=== PATIENT | male | born 1995 | race Caucasian/White ===

== ENCOUNTER 2017-03-09 11:28 | Emergency (ER) | payer BC, OTHER ==
--- NOTE | 2017-03-09 11:59 | XRAY Preliminary Report ---
Exam: XR Ankle 3 View RT IMPRESSION: Minimally displaced fracture of the lateral malleolus with a small joint effusion and adj acent soft tissue swelling. [facility] SITE ID: [id number]
--- NOTE | 2017-03-09 12:02 | XRAY Report ---
EXAM: RIGHT ANKLE RADIOGRAPHY EXAM DATE: 03/09/2017 11:51 AM. CLINICAL HISTORY: Hard to ambulate after twisting ankle. . COMPARISON: None. TECHNIQUE: 3 views. FINDINGS: Bones: Minimally displaced fracture of the lateral malleolus. Joints: Small joint effusion at the ankle. Soft Tissues: Soft tissue swelling along lateral aspect of the ankle. IMPRESSION: Minimally displaced fracture of the lateral malleolus with a small joint effusion and adj acent soft tissue swelling. [facility] Referring Provider Line: [phone] SITE ID: [id number]
--- NOTE | 2017-03-09 13:13 | ED Physician Documentation ---
PD HPI LOWER EXT INJURY - Stated complaint Stated Complaint: RT ANKLE INJURY - Chief complaint Chief Complaint: Ext Problem - History obtained from History obtained from: Patient - History of Present Illness PD HPI LOW EXT INJURY LOCATION: Right, Ankle Type of injury: Twist Where injury occurred: Other (hiking around river) Timing - onset: How many days ago (3) Timing - duration: Days (3) Timing - details: Abrupt onset, Still present Worsened by: Moving, Other (walking) Associated symptoms: Swelling. No: Weakness, Numbness Similar symptoms before: Has not had sx before Recently seen: Not recently seen Review of Systems Constitutional: denies: Fever, Chills GI: denies: Nausea, Vomiting Skin: denies: Abrasion (s), Laceration (s) Neurologic: denies: Focal weakness, Numbness PD PAST MEDICAL HISTORY - Past Medical History Past Medical History: No - Past Surgical History Past Surgical History: No - Present Medications Home Medications: Ambulatory Orders Medication Instructions Recorded Confirmed No Known Home Medications [No 03/09/17 03/09/17 Known Home Medications] - Allergies Allergies/Adverse Reactions: Allergies Allergy/AdvReac Type Severity Reaction Status Date / Time No Known Drug Allergies Allergy Verified 03/09/17 11:34 - Social History Does the pt smoke?: No Smoking Status: Never smoker Does the pt drink ETOH?: No Does the pt have substance abuse?: No - Immunizations Immunizations are current?: Yes PD ED PE NORMAL - Vitals Vital signs reviewed: Yes - General General: Alert and oriented X 3, No acute distress, Well developed/nourished - Derm Derm: Normal color, Warm and dry - Extremities Extremities: Other (There is swelling and tenderness along the distal fibula. There is no medial tenderness. The Achilles is firm and nontender. Normal sensation color and capillary refill in the toes. Inversion testing does cause pain. There is no pain medially. X-ray shows a distal fibular fracture below the angle of the mortised.) - Neuro Neuro: No motor deficit, No sensory deficit Results - Vitals Vitals: Oxygen O2 Source Room air - Rads (name of study) right ankle Radiology: Prelim report reviewed, EMP read contemporaneously (Distal fibular fracture below the ankle mortise. It is minimally displaced. The mortise appears normal. Medial aspect is normal.) PD MEDICAL DECISION MAKING - ED course Complexity details: reviewed results, considered differential, d/w patient ( distal fibular fracture, without medial tenderness, and he has been walking on it a few days. Could treat adequately with cast boot. He is between jobs currently, so does not need work limitations. ) Departure - Departure Disposition: 01 Home, Self Care Clinical Impression: Fracture of distal fibula Qualifiers: Encounter type: initial encounter Fracture type: closed Fracture morphology: other fracture Laterality: right Qualified Code(s): S82.831A - Other fracture of upper and lower end of right fibula, initial encounter for closed fracture Condition: Stable Record reviewed to determine appropriate education?: Yes Instructions: ED Fx Ankle Lateral Malleolus Follow-Up: Alli Yu MD [Provider Admit Priv/Credential] - Comments: Cast boot when ambulating for the next 4 weeks. Call orthopedics tomorrow for a follow-up appointment in about 1 week. Minimal walking until follow-up. Tylenol or ibuprofen if needed for pain. Rest ice and elevate often to reduce swelling. Discharge Date/Time: 03/09/17 14:32
[2017-03-09 14:08] VITALS: BP 132/75
== END 2017-03-09 14:32 | disposition home or self-care (01) ==
LOC: ED 11:28
DX: S82.831A Other fracture of upper and lower end of right fibula, initial encounter for closed fracture (principal); X50.1XXA Overexertion from prolonged static or awkward postures, initial encounter; Y93.01 Activity, walking, marching and hiking; Y92.828 Other wilderness area as the place of occurrence of the external cause
CPT/HCPCS: 99283